=== PATIENT | female | born 1960 | race Caucasian/White ===

== ENCOUNTER 2024-03-26 04:30 | Emergency (ER) | payer BC, OTHER ==
--- OUTSIDE RECORDS SUMMARY | 2024-03-26 04:34 | XMS REPORT | Continuity of Care Document ---
Author Name Unknown Address [address] [place] [address] thconnect Address [address] [place] [address] Care Team Providers Care Mortgage Loan Processing Clerk Name Role Phone [email or web address] Attending Clinician Unavaila ble [email or web address] Admitting Clinician Unavaila ble Encounters Start Date/Time End Date/Time Encounter Type Admission Type Attending Clinicians Care Facility Care Department Encounter ID Source 2023-03-14 00:00:00 2023-03-14 00:00:00 Outpatient [email or web address] [email or web address] [facility] [id number] [facility]
[2024-03-26] MEDS ORDERED: DIAZEPAM 10 MG/2 ML INJ SYRINGE ONE (05:28)
[2024-03-26 06:03] LABS: Absolute Basophils 0.1 K/uL (0-0.5); Absolute Eosinophils 0.1 K/uL (0-0.5); Absolute Lymphocytes (CBC) 2.1 K/uL (0.7-4.9); Absolute Monocytes 0.4 K/uL (0.1-1.3); Absolute Neutrophil 2.5 K/uL (1.8-8.0); Basophils % 1.2 % (0-1.3); Eosinophils % 1.2 % (0-4.4); Hematocrit 36.6 % (36.0-45.0); Hemoglobin 12.4 g/dL (12.0-15.0); Lymphocytes % 41.2 % (15.3-44.8); MCH 31.8 pg (27.0-35.0); MCHC 33.8 g/dL (32.0-36.0); MCV 94.1 fL (80-100); MPV 8.9 fL (7.6-11.3); Monocytes % 7.3 % (3.3-12.3); Neutrophils % 49.1 % (41.7-73.7); Platelets 279 thou/uL (152-406); RBC Red Blood Cell Count 3.89 M/uL (3.86-4.86); Red Cell Distribution Width 13.1 % (12.1-15.2)
[2024-03-26 06:49] LABS: Anion Gap 8.4 mEq/L (5.0-15.0); Potassium 3.4 mEq/L (3.5-5.1); Troponin High Sensitivity 6.7 pg/mL (<58.9)
--- NOTE | 2024-03-26 06:54 | RAD REPORT ---
EXAM DESCRIPTION: Chest Single View CLINICAL HISTORY: CHEST PAIN COMPARISON: None TECHNIQUE: Single AP view of the chest. FINDINGS: Lung volumes adequate. Cardiac silhouette is normal in size. No pneumothorax. No large pleural effusion. No focal consolidation. No acute bony finding. IMPRESSION: No evidence of acute cardiopulmonary disease. Electronically signed by: Dominic Alejandre MD 03/26/2024 06:40 AM LABORATORY SAMPLE CARRIER Z9 Due to temporary technical issues with the PACS/Solairedirect reporting system, reports are being viri d by the in-house radiologist without review as a courtesy to ensure prompt reporting the interpreting radiologist is fully responsible for the content of the report. Transcribed Date/Time: 03/26/2024 6:54 AM
--- NOTE | 2024-03-26 06:58 | ER ---
Nurse's Notes [facility] Name: Melony Washington Age: 63 yrs Sex: Female : 1960 Arrival Date: 03/26/2024 Time: 04:30 Bed 6 Private MD: Diagnosis: Chest pain, unspecified;Anxiety disorder, unspecified Presentation: 03/26 04:47 Chief complaint: Patient states: history of panic attacks after loss of son. since his lg3 I've had troubles controlling my BP and anxiety. BP readings high all day triggering my anxiety. left arm heaviness and achiness. Coronavirus screen: Client denies travel out of the [place] in the last 14 days. At this time, the client does not indicate any symptoms associated with coronavirus-19. Ebola Screen: No symptoms or risks identified at this time. Initial Sepsis Screen: Does the patient meet any 2 criteria? No. Patient's initial sepsis screen is negative. Does the patient have a suspected source of infection? No. Patient's initial sepsis screen is negative. Risk Assessment: Do you want to hurt yourself or someone else? Patient reports no desire to harm self or others. Onset of symptoms was February 23, 2024. 04:47 Method Of Arrival: Ambulatory lg3 04:47 Acuity: SAUL 3 lg3 Triage Assessment: 04:59 General: Appears in no apparent distress. Behavior is cooperative, anxious. Pain: lg3 Complains of pain in left arm. EENT: No deficits noted. No signs and/or symptoms were reported regarding the EENT system. Neuro: No deficits noted. Dickens Agitation-Sedation Scale (RASS): 0 - Alert and Calm Level of Consciousness is awake, alert, obeys commands, Oriented to person, place, time, situation. Cardiovascular: Capillary refill < 3 seconds Clubbing of nail beds is absent JVD is absent Patient's skin is warm and dry. Respiratory: No deficits noted. Airway is patent Respiratory effort is even, unlabored, Respiratory pattern is regular, symmetrical. GI: No deficits noted. No signs and/or symptoms were reported involving the gastrointestinal system. : No deficits noted. No signs and/or symptoms were reported regarding the genitourinary system. Derm: No deficits noted. No signs and/or symptoms reported regarding the dermatologic system. Skin is intact, is healthy with good turgor, Skin is dry, Skin is normal, Skin temperature is warm. Musculoskeletal: Reports pain in left arm. Historical: - Allergies: 04:59 STATINS HMG COA REDUCTASE INHIBITORS; lg3 - Home Meds: 04:59 buspirone 10 mg Oral tablet 1 tab 3 times per day [Active]; olmesartan 40 mg oral lg3 tablet 1 tab daily [Active]; - PMHx: 04:59 Anxiety; Hypertensive disorder; Fibromyalgia; Osteoarthritis; lung cancer; lg3 - PSHx: 04:59 right partial lobectomy; lg3 - Immunization history:: Adult Immunizations up to date. - Infectious Disease History:: Denies. - Social history:: Smoking status: Patient denies any tobacco usage or history of. Patient/guardian denies using alcohol, street drugs. Screenin:25 [facility] ED Fall Risk Assessment (Adult) History of falling in the last 3 months, jj7 including since admission No falls in past 3 months (0 pts) Confusion or Disorientation No (0 pts) Intoxicated or Sedated No (0 pts) Impaired Gait No (0 pts) Mobility Assist Device Used No (0 pt) Altered Elimination No (0 pt) Score/Fall Risk Level 0 - 2 = Low Risk Oriented to surroundings, Maintained a safe environment, Educated pt \T\ family on fall prevention, incl call for assistance when getting out of bed, Assessed \T\ reinforced patient's understanding of fall precautions. Abuse screen: Denies threats or abuse. Nutritional screening: No deficits noted. Tuberculosis screening: No symptoms or risk factors identified. Assessment: 05:25 General: Appears in no apparent distress. comfortable, Behavior is calm, cooperative, jj7 appropriate for age, anxious. Pain: Denies pain. Neuro: Reports numbness in left arm. Cardiovascular: Denies chest pain. Vital Signs: 04:47 BP 185 / 106; Pulse 86; Resp 17 S; Temp 98.1(O); Pulse Ox 96% on R/A; Weight 68.04 kg lg3 (R); Height 5 ft. 3 in. (R); 05:55 BP 152 / 88; Pulse 80; ec2 06:25 BP 150 / 85; Pulse 79; Resp 20; Pulse Ox 100% ; jj7 06:38 BP 147 / 87; Pulse 83; ec2 07:12 BP 144 / 80; Pulse 72; Resp 16; Pulse Ox 99% ; ko1 04:47 Body Mass Index 26.57 (68.04 kg, 160.02 cm) lg3 ED Course: 04:44 Patient arrived in ED. gm2 04:45 Ok Rhodes MD is Attending Physician. ec2 04:59 Triage completed. lg3 04:59 Arm band placed on right wrist. lg3 05:07 Erica Sargent, RN is Primary Nurse. jj7 05:25 Patient has correct armband on for positive identification. Placed in gown. Bed in low jj7 position. Call light in reach. Adult w/ patient. Provided Education on: USE OF CALL BENITES. Client placed on continuous cardiac and pulse oximetry monitoring. NIBP monitoring applied. threat monitoring analyst on. Pulse ox on. Warm blanket given. 05:31 XRAY Chest (1 view) In Process Unspecified. EDMS 05:35 Missed attempt(s): 20 gauge in left antecubital area. Bleeding controlled, band aid jj7 applied, catheter tip intact. 05:40 Inserted saline lock: 20 gauge in left hand, using aseptic technique. Blood collected. jj7 Flushed with 10 mL NS. 05:51 Basic Metabolic Panel Sent. jj7 05:51 CBC with Diff Sent. jj7 05:51 Troponin HS Sent. jj7 06:24 Basic Metabolic Panel Sent. jj7 06:25 Troponin HS Sent. jj7 07:12 No provider procedures requiring assistance completed. IV discontinued, intact, ko1 bleeding controlled, No redness/swelling at site. Pressure dressing applied. Administered Medications: 05:40 Drug: Diazepam IVP 5 mg IVP once Route: IVP; Site: left hand; jj7 06:24 Follow up: Response: Anxiety unchanged jj7 Medication: 05:25 VIS not applicable for this client. jj7 Outcome: 06:57 Discharge ordered by . ec2 07:12 Discharged to home ambulatory, with family, ko1 07:12 Condition: stable 07:12 Discharge instructions given to patient, family, Instructed on discharge instructions, follow up and referral plans. medication usage, Demonstrated understanding of instructions, follow-up care, medications, Prescriptions given X 1, 07:13 Patient left the ED. ko1 Signatures: Dispatcher [employer] EDAmy Chanel RN RN lg3 Danae Ontiveros, RN RN ko1 Erica Sargent, RN RN jj7 Ok Rhodes MD MD ec2 Clare London 2
--- NOTE | 2024-03-26 06:58 | EDPHYS ---
Physician Documentation [facility] Name: Melony Washington Age: 63 yrs Sex: Female : 1960 Arrival Date: 03/26/2024 Time: 04:30 Bed 6 Private MD: ED Physician Ok Rhodes HPI: 03/26 05:06 This 63 yrs old Female presents to ER via Ambulatory with complaints of High ec2 Blood Pressure, Arm Pain. 05:06 Patient with history of anxiety and hypertension arrives today due to concern for left ec2 arm pain. States that she has been having some issues with stress and anxiety due to the loss of multiple loved ones. Reports that she grew concerned because she has high blood pressure and started having some left arm pain.. Historical: - Allergies: 04:59 STATINS HMG COA REDUCTASE INHIBITORS; lg3 - Home Meds: 04:59 buspirone 10 mg Oral tablet 1 tab 3 times per day [Active]; olmesartan 40 mg oral lg3 tablet 1 tab daily [Active]; - PMHx: 04:59 Anxiety; Hypertensive disorder; Fibromyalgia; Osteoarthritis; lung cancer; lg3 - PSHx: 04:59 right partial lobectomy; lg3 - Immunization history:: Adult Immunizations up to date. - Infectious Disease History:: Denies. - Social history:: Smoking status: Patient denies any tobacco usage or history of. Patient/guardian denies using alcohol, street drugs. ROS: 05:06 Constitutional: as per hpi ec2 Exam: 05:06 Constitutional: GEN: NAD Head: atraumatic Eyes: EOMI Ears: External ears are ec2 normal. CV: regular rate LUNGS: no respiratory distress ABD: non-distended SKIN: no evidence of rashes MSK: no evidence of traumaPsych: Tearful individual was otherwise cooperative in no acute distress Vital Signs: 04:47 BP 185 / 106; Pulse 86; Resp 17 S; Temp 98.1(O); Pulse Ox 96% on R/A; Weight 68.04 kg lg3 (R); Height 5 ft. 3 in. (R); 05:55 BP 152 / 88; Pulse 80; ec2 06:25 BP 150 / 85; Pulse 79; Resp 20; Pulse Ox 100% ; jj7 06:38 BP 147 / 87; Pulse 83; ec2 07:12 BP 144 / 80; Pulse 72; Resp 16; Pulse Ox 99% ; ko1 04:47 Body Mass Index 26.57 (68.04 kg, 160.02 cm) lg3 MDM: 04:45 Medical Screening Exam initiated ec2 05:07 Data reviewed: vital signs, nurses notes. ec2 06:02 ED course: EKG independently reviewed and interpreted by me, shows normal sinus rhythm, ec2 rate 76, no acute ST segment elevations, intervals are nonactionable.. 06:36 ED course: Chest x-ray independently reviewed and interpreted by me, shows no acute ec2 intrathoracic process.. 06:57 ED course: On reassessment patient is well-appearing no acute distress. Will discharge ec2 home, suspect anxiety. Return precautions given.. 03/26 04:45 Order name: Basic Metabolic Panel; Complete Time: 06:50 ec2 03/26 04:45 Order name: CBC with Diff; Complete Time: 06:36 ec2 03/26 04:45 Order name: Troponin HS; Complete Time: 06:50 ec2 03/26 04:45 Order name: XRAY Chest (1 view) ec2 03/26 04:45 Order name: Cardiac monitoring; Complete Time: 05:25 ec2 03/26 04:45 Order name: EKG - Nurse/Tech; Complete Time: 06:07 ec2 03/26 04:45 Order name: IV Saline Lock; Complete Time: 05:25 ec2 03/26 04:45 Order name: Labs collected and sent; Complete Time: 05:51 ec2 03/26 04:45 Order name: O2 Per Protocol; Complete Time: 05:25 ec2 03/26 04:45 Order name: O2 Sat Monitoring; Complete Time: 05:25 ec2 03/26 06:07 Order name: Misc. Order: RECOLLECT GREEN TOP; Complete Time: 06:25 rv1 Administered Medications: 05:40 Drug: Diazepam IVP 5 mg IVP once Route: IVP; Site: left hand; jj7 06:24 Follow up: Response: Anxiety unchanged jj7 Disposition Summary: 03/26/24 06:57 Discharge Ordered Notes: Location: Home ec2 Condition: Stable ec2 Diagnosis - Chest pain, unspecified ec2 - Anxiety disorder, unspecified ec2 Followup: ec2 - With: Private Physician - When: - Reason: Re-evaluation by your physician Discharge Instructions: - Discharge Summary Sheet ec2 - Panic Attack, [id number] ec2 Forms: - Medication Reconciliation Form ec2 - Antibiotic Education ec2 - Prescription Opioid Use ec2 - Patient Portal Instructions ec2 - Leadership Thank You Letter ec2 Prescriptions: - Hydroxyzine HCl 50 mg Oral Tablet - take 1 tablet ORAL route every 8 hours As needed; 20 tablet; Refills: 0, ec2 Product Selection Permitted Signatures: Dispatcher [employer] EDAmy Chanel, RN RN lg3 Erica Sargent RN RN jj7 Barbara Lin rv1 Ok Rhodes MD MD ec2 Corrections: (The following items were deleted from the chart) 04:46 04:46 BASIC METABOLIC PANEL+C.LAB.BRZ ordered. EDMS EDMS 04:46 04:46 CBC+H.LAB.BRZ ordered. EDMS EDMS 04:46 04:46 Troponin High Sensitivity+C.LAB.BRZ ordered. EDMS EDMS 04:46 04:46 Chest Single View+RAD.RAD.BRZ ordered. EDMS EDMS
[2024-03-26 07:23] VITALS: TEMP 98.1
[2024-03-26 07:40] VITALS: BP 144/80; O2SAT 99
--- NOTE | 2024-03-26 12:39 | EKG ---
Test Date: 2024-03-26 Test Time: 05:59:36 Junior Web Developer: MEASUREMENT RESULTS: Intervals: Rate: 76 NH: 138 QRSD: 86 QT: 376 QTc: 423 Comins: P: 4 NH: 138 QRS: 28 T: 48 INTERPRETIVE STATEMENTS: Normal sinus rhythm Normal ECG No previous ECG available for comparison Electronically Signed On 03-26-24 12:38:17 SHANKER OUT by Anton Harvey
== END 2024-03-26 07:13 | disposition home or self-care (01) ==
LOC: ER 04:30
DX: R07.89 Other chest pain (principal); F41.9 Anxiety disorder, unspecified; I10 Essential (primary) hypertension
CPT/HCPCS: 93005; 85025; 80048; 36415; 84484; 71045; J3360; 96374; 99285

== ENCOUNTER 2024-04-21 19:15 | Emergency (ER) | payer BC ==
[2024-04-21] MEDS ORDERED: FENTANYL CITR 100 MCG/2 ML ONE (20:00)
[2024-04-21] MEDS ORDERED: HYDROCODONE/APAP 10/325 TAB ONE (20:22)
[2024-04-21] MEDS ORDERED: ONDANSETRON 4 MG (ODT) TAB ONE (20:22)
--- NOTE | 2024-04-21 21:34 | RAD REPORT ---
Exam:Shoulder Right 2+ Views History: Right shoulder pain Findings: Suboptimal evaluation of the right shoulder secondary to difficulty with patient positioning. No fracture seen. Evaluation for dislocation is limited. There probably is not a dislocation. If clinical suspicion per sists for one than CT could be obtained
--- NOTE | 2024-04-21 21:47 | ER ---
Nurse's Notes [facility] Name: Melony Washington Age: 63 yrs Sex: Female : 1960 Arrival Date: 04/21/2024 Time: 19:15 Bed 6 Private MD: Diagnosis: Other sprain of right shoulder joint Presentation: 04/21 19:20 Chief complaint: Patient states: states she was at the [employer] walking up to it, al5 caught the curb accidentally and fell. states she had her arms extended out and felt a pop in her R arm. c/o pain to R shoulder and R leg, pain more in R shoulder. 19:20 Acuity: SAUL 3 al5 19:20 Care prior to arrival: None. Mechanism of Injury: Fall from standing position. Trauma al5 event details: Injury occurred in the [facility], Injury occurred: in a public building. Injury occurred: April 21, 2024. 19:20 Method Of Arrival: Ambulatory al5 19:20 Coronavirus screen: At this time, the client does not indicate any symptoms associated al5 with coronavirus-19. Ebola Screen: No symptoms or risks identified at this time. Initial Sepsis Screen: Does the patient meet any 2 criteria? No. Patient's initial sepsis screen is negative. Does the patient have a suspected source of infection? No. Patient's initial sepsis screen is negative. Risk Assessment: Do you want to hurt yourself or someone else? Patient reports no desire to harm self or others. Onset of symptoms was April 21, 2024. Triage Assessment: 19:20 General: see trauma assessment. al5 Trauma Activation: Physician: ED Physician; Name: ; Notified At: ; Arrived At: Physician: General Surgeon; Name: ; Notified At: ; Arrived At: Physician: Radiology; Name: ; Notified At: ; Arrived At: Physician: Respiratory; Name: ; Notified At: ; Arrived At: Physician: Lab; Name: ; Notified At: ; Arrived At: 19:20 n/a al5 Historical: - Allergies: 19:20 STATINS HMG COA REDUCTASE INHIBITORS; al5 - Home Meds: 19:20 buspirone 10 mg Oral tablet 1 tab 3 times per day [Active]; olmesartan 40 mg Oral al5 tablet 1 tab daily [Active]; - PMHx: 19:20 Anxiety; Fibromyalgia; Hypertensive disorder; Lung Cancer; osteoarthritis; al5 - PSHx: 19:20 right partial lobectomy; al5 - Immunization history: Last tetanus immunization: - up to date. - Infectious Disease History:: Denies. - Social history:: Smoking status: Patient denies any tobacco usage or history of. Screenin:20 Abuse screen: Denies threats or abuse. Denies injuries from another. Nutritional al5 screening: No deficits noted. Tuberculosis screening: No symptoms or risk factors identified. 19:20 [facility] ED Fall Risk Assessment (Adult) History of falling in the last 3 months, al5 including since admission Yes- single mechanical fall (1 pt) Confusion or Disorientation No (0 pts) Intoxicated or Sedated No (0 pts) Impaired Gait No (0 pts) Mobility Assist Device Used No (0 pt) Altered Elimination No (0 pt) Score/Fall Risk Level 3 or more points = High Risk Oriented to surroundings, Maintained a safe environment, Hourly rounding (assess needs \T\ fall precautionary measures) done, Utilized family, sitter, or virtual efficiency expert as indicated. Primary Survey: 19:20 NO uncontrolled hemorrhage observed. A: The client is awake and alert. The airway is al5 patent. The client is alert. Airway: patent. Breathing/Chest: Spontaneous respiratory effort, equal unlabored respirations, breath sounds clear bilaterally, regular pattern, symmetrical chest rise and fall. Respiratory effort: spontaneous, unlabored, Respiratory pattern: regular. Circulation: No external hemorrhage present. Regular and strong central pulse, skin warm/dry/normal color. Skin color: pink, Skin temperature: warm, dry. Disability Pupils are equal, round, reactive to light and accommodation. Client is alert. Exposure/Environment: Obvious injury(ies) are noted at this time: R leg and and shoulder. 22:15 Reassessment Alertness and Airway: Awake and alert. The airway is patent. Airway Patent al5 Oxygen No O2 Breathing: Spontaneous respiratory effort, equal unlabored respirations, breath sounds clear bilaterally, regular pattern with symmetrical chest rise and fall. Respiratory effort Spontaneous Unlabored Respiratory pattern Regular Circulation: No external hemorrhage noted. Regular and strong central pulse, skin warm/dry/normal color. Color [place] Temperature Warm Dry Disability: Pupils Pupils are equal, round, reactive to light and accomodation. Alert. Secondary Survey: 19:20 HEENT: No deficits noted. Gastrointestinal: No deficits noted. : No deficits noted. al5 Musculoskeletal: Reports pain in right leg and right arm. Assessment: 19:20 General: Appears in no apparent distress. uncomfortable, Behavior is cooperative. Pain: al5 Complains of pain in right arm and right leg Pain currently is 10 out of 10 on a pain scale. Neuro: Level of Consciousness is awake, alert, obeys commands, Oriented to person, place, time, situation. EENT: No signs and/or symptoms were reported regarding the EENT system. Cardiovascular: Capillary refill < 3 seconds Patient's skin is warm and dry. Respiratory: Airway is patent Respiratory effort is even, unlabored, Respiratory pattern is regular, symmetrical. GI: No signs and/or symptoms were reported involving the gastrointestinal system. : No signs and/or symptoms were reported regarding the genitourinary system. Derm: Skin is intact, is healthy with good turgor, Skin is pink, warm \T\ dry. normal. Musculoskeletal: No signs and/or symptoms reported regarding the musculoskeletal system. 20:30 Reassessment: Patient appears in no apparent distress at this time. No changes from al5 previously documented assessment. Patient and/or family updated on plan of care and expected duration. Pain level reassessed. Patient is alert, oriented x 3, equal unlabored respirations, skin warm/dry/pink. 21:19 Reassessment: Patient appears in no apparent distress at this time. No changes from al5 previously documented assessment. Patient and/or family updated on plan of care and expected duration. Pain level reassessed. Patient is alert, oriented x 3, equal unlabored respirations, skin warm/dry/pink. pain is about an 8/10 but is tolerable per the patient. Vital Signs: 19:20 BP 177 / 112; Pulse 79; Resp 19; Temp 98.4; Pulse Ox 95% ; Weight 61.23 kg; Height 5 al5 ft. 3 in. ; Pain 10/10; 19:45 BP 170 / 114; Pulse 79; Resp 18; Pulse Ox 100% on R/A; al5 20:00 BP 159 / 91; Pulse 86; Resp 18; Pulse Ox 100% ; al5 20:30 BP 152 / 107; Pulse 81; Resp 17; Pulse Ox 99% on R/A; al5 21:00 BP 112 / 93; Pulse 91; Resp 17; Pulse Ox 99% on R/A; al5 22:16 BP 131 / 92; Pulse 87; Resp 18; Pulse Ox 100% on R/A; al5 19:20 Body Mass Index 23.91 (61.23 kg, 160.02 cm) al5 19:20 Pain Scale: Adult al5 Hector Coma Score: 19:20 Eye Response: spontaneous(4). Motor Response: obeys commands(6). Verbal Response: al5 oriented(5). Total: 15. Trauma Score (Adult): 19:20 Eye Response: spontaneous(1); Verbal Response: oriented(1); Motor Response: obeys al5 commands(2); Systolic BP: > 89 mm Hg(4); Respiratory Rate: 10 to 29 per min(4); Hector Score: 15; Trauma Score: 12 ED Course: 19:17 Patient arrived in ED. gm2 19:20 Patient has correct armband on for positive identification. Bed in low position. Call al5 light in reach. Side rails up X2. 19:20 Arm band placed on right wrist. Patient placed in the treatment room, on a stretcher. al5 19:20 Provided Education on: plan of care, medications. al5 19:20 Patient maintains SpO2 saturation greater than 95% on room air. al5 19:20 Thermoregulation: warm blanket given to patient. al5 19:22 Vicki Lindo PA-C is PHCP. sb4 19:22 Nina nKowles MD is Attending Physician. sb4 19:39 Yolie Bergeron RN is Primary Nurse. al5 19:48 Triage completed. al5 20:34 Shoulder Right (2 View) XRAY In Process Unspecified. EDMS 21:46 Josue Noel MD is Referral Physician. sb4 22:14 No provider procedures requiring assistance completed. Patient did not have IV access al5 during this emergency room visit. Clavicle strap applied on. Administered Medications: 20:06 Drug: fentaNYL (PF) IM 50 mcg IM once Route: IM; Site: right deltoid; al5 20:34 Follow up: Response: No adverse reaction; Pain is unchanged, physician notified al5 20:34 Drug: [place] PO 10 mg-325 mg 1 tabs PO once Route: PO; al5 21:15 Follow up: Response: No adverse reaction; Pain is decreased al5 20:34 Not Given (Patient Refused): Ondansetron Oral Disintegrating Tablet 4 mg PO once al5 Medication: 19:20 VIS not applicable for this client. al5 Intake: 19:20 n/a al5 Outcome: 21:47 Discharge ordered by . sb4 22:15 Discharged to home ambulatory, with significant other, al5 22:15 Condition: good 22:15 Discharge instructions given to patient, Instructed on discharge instructions, follow up and referral plans. medication usage, Demonstrated understanding of instructions, follow-up care, medications, Prescriptions given X 2, 22:15 Patient's length of stay was not longer than 2 hours. 22:17 Patient left the ED. al5 Signatures: Dispatcher [employer] EDMS Vicki Lindo, PA-C PA-Nav bull4 Clare London 2 Yolie Bergeron RN RN al5 Corrections: (The following items were deleted from the chart) 21:19 21:19 Reassessment: Patient appears in no apparent distress at this time. No changes al5 from previously documented assessment. Patient and/or family updated on plan of care and expected duration. Pain level reassessed. Patient is alert, oriented x 3, equal unlabored respirations, skin warm/dry/pink. al5
--- NOTE | 2024-04-21 21:47 | EDPHYS ---
Physician Documentation [facility] Name: Melony Washington Age: 63 yrs Sex: Female : 1960 Arrival Date: 04/21/2024 Time: 19:15 Bed 6 Private MD: ED Physician Nina Knowles HPI: 04/21 20:48 This 63 yrs old Female presents to ER via Ambulatory with complaints of Fall Injury, sb4 Arm Injury. 20:48 tripped over a curb and fell on an outstretched right hand, heard shoulder pop, sb4 immediately had pain in the area. states the pain begins in the shoulder and radiates down to her hand. reports history of arthritis in the shoulder but no other issues with it. Historical: - Allergies: 19:20 STATINS HMG COA REDUCTASE INHIBITORS; al5 - Home Meds: 19:20 buspirone 10 mg Oral tablet 1 tab 3 times per day [Active]; olmesartan 40 mg Oral al5 tablet 1 tab daily [Active]; - PMHx: 19:20 Anxiety; Fibromyalgia; Hypertensive disorder; Lung Cancer; osteoarthritis; al5 - PSHx: 19:20 right partial lobectomy; al5 - Immunization history: Last tetanus immunization: - up to date. - Infectious Disease History:: Denies. - Social history:: Smoking status: Patient denies any tobacco usage or history of. ROS: 20:48 Constitutional: Negative for fever, chills, and weight loss, sb4 20:48 MS/extremity: Positive for injury or acute deformity, decreased range of motion, pain, of the right arm, 20:48 All other systems are negative, Exam: 20:48 Constitutional: The patient appears alert, awake, in obvious pain, uncomfortable, sb4 20:48 Musculoskeletal/extremity: Circulation is intact in all extremities. Pulses: are normal with no appreciated deficits, Sensation intact. Joints: the right shoulder displays limited range of motion, pain at rest, painful range of motion, no deformity or crepitus, 20:50 Head/Face: Normocephalic, atraumatic. Eyes: Extra-ocular motions intact. Periorbital sb4 areas with no swelling, redness, or edema. ENT: Mucous membranes moist. Skin: Warm, dry with normal turgor. Normal color with no rashes, no lesions, and no evidence of cellulitis. Vital Signs: 19:20 BP 177 / 112; Pulse 79; Resp 19; Temp 98.4; Pulse Ox 95% ; Weight 61.23 kg; Height 5 al5 ft. 3 in. ; Pain 10/10; 19:45 BP 170 / 114; Pulse 79; Resp 18; Pulse Ox 100% on R/A; al5 20:00 BP 159 / 91; Pulse 86; Resp 18; Pulse Ox 100% ; al5 20:30 BP 152 / 107; Pulse 81; Resp 17; Pulse Ox 99% on R/A; al5 21:00 BP 112 / 93; Pulse 91; Resp 17; Pulse Ox 99% on R/A; al5 22:16 BP 131 / 92; Pulse 87; Resp 18; Pulse Ox 100% on R/A; al5 19:20 Body Mass Index 23.91 (61.23 kg, 160.02 cm) al5 19:20 Pain Scale: Adult al5 Hector Coma Score: 19:20 Eye Response: spontaneous(4). Motor Response: obeys commands(6). Verbal Response: al5 oriented(5). Total: 15. Trauma Score (Adult): 19:20 Eye Response: spontaneous(1); Verbal Response: oriented(1); Motor Response: obeys al5 commands(2); Systolic BP: > 89 mm Hg(4); Respiratory Rate: 10 to 29 per min(4); Hector Score: 15; Trauma Score: 12 MDM: 19:23 Medical Screening Exam initiated sb4 20:50 Independent interpretation of the following test(s) in the Emergency Department X-Ray: sb4 My interpretation is my interpretation of the right shoulder xray images are no acute fracture or dislocation. 23:59 Data reviewed: vital signs, nurses notes, radiologic studies, and as a result, I will sb4 discharge patient. Counseling: I had a detailed discussion with the patient and/or guardian regarding the historical points, exam findings, and any diagnostic results supporting the discharge/admit diagnosis, radiology results, the need for outpatient follow up, a orthopedic surgeon, to return to the emergency department if symptoms worsen or persist or if there are any questions or concerns that arise at home. 04/21 19:31 Order name: Shoulder Right (2 View) XRAY; Complete Time: 21:35 sb4 Administered Medications: 20:06 Drug: fentaNYL (PF) IM 50 mcg IM once Route: IM; Site: right deltoid; al5 20:34 Follow up: Response: No adverse reaction; Pain is unchanged, physician notified al5 20:34 Drug: [place] PO 10 mg-325 mg 1 tabs PO once Route: PO; al5 21:15 Follow up: Response: No adverse reaction; Pain is decreased al5 20:34 Not Given (Patient Refused): Ondansetron Oral Disintegrating Tablet 4 mg PO once al5 Disposition Summary: 04/21/24 21:47 Discharge Ordered Notes: Location: Home sb4 Problem: new sb4 Symptoms: have improved sb4 Condition: Stable sb4 Diagnosis - Other sprain of right shoulder joint sb4 Followup: sb4 - With: Josue Noel MD - When: As needed - Reason: Further diagnostic work-up, Recheck today's complaints, Re-evaluation by your physician Discharge Instructions: - Discharge Summary Sheet sb4 - How to Use a Shoulder Immobilizer sb4 - Shoulder Sprain sb4 Forms: - Patient Portal Instructions sb4 - Leadership Thank You Letter sb4 - Work release form al5 Prescriptions: - Cyclobenzaprine 10 mg Oral Tablet - take 1 tablet ORAL route every 8 hours As needed; 30 tablet; Refills: 0, sb4 Product Selection Permitted - Diclofenac Sodium 75 mg Oral Tablet Sustained Release - take 1 tablet ORAL route 2 times per day; 30 tablet; Refills: 0, Product sb4 Selection Permitted Signatures: Dispatcher [employer] Vicki Lee PA-C PA-C sb4 Yolie Bergeron RN RN al5
[2024-04-22 01:34] VITALS: TEMP 98.4
[2024-04-22 01:40] VITALS: BP 131/92; O2SAT 100
== END 2024-04-21 22:17 | disposition home or self-care (01) ==
LOC: ER 19:15
DX: S43.491A Other sprain of right shoulder joint, initial encounter (principal); W18.09XA Striking against other object with subsequent fall, initial encounter
CPT/HCPCS: 73030; 96372; 99284; J3010; Q0162

== ENCOUNTER 2024-10-01 15:08 | Emergency (ER) | payer BC, SELFPAY ==
--- OUTSIDE RECORDS SUMMARY | 2024-10-01 15:21 | XMS REPORT | Continuity of Care Document ---
Author Name Unknown Address [address] [place] [id number] [place] [address] [place] [address] [address] [place] [address] Care Team Providers Care Ui Designer Name Role Phone [email or web address] Attending Clinician Unavaila ble [email or web address] Admitting Clinician Unavaila ble Encounters Start Date/Time End Date/Time Encounter Type Admission Type Attending Clinicians Care Facility Care Department Encounter ID Source 2023-03-14 00:00:00 2023-03-14 00:00:00 Outpatient [email or web address] [facility] [id number] [facility]
[2024-10-01] MEDS ORDERED: FENTANYL CITR 100 MCG/2 ML ONE (16:02)
--- NOTE | 2024-10-01 16:54 | RAD REPORT ---
EXAMINATION: Spine Lumbar Wo Con CLINICAL INDICATION: Female, 64 years old. Pain;Radiculopathy TECHNIQUE: Axial CT images were obtained through the lumbar spine in soft tissue and bone windows wit hout intravenous contrast. Coronal and Sagittal reformatted images were created from the data set. One or more of the following dose reduction techniques were used: Automated exposure control, adjustm ent of the mA and/ or kV according to patient size, and/or iterative reconstruction. Unless otherwise specified, incidental findings do not require dedicated imaging follow-up. [id number]. COMPARISON: No prior exam. FINDINGS: For purposes of this dictation, it is assumed that there are 5 non rib-bearing lumbar type vertebrae, and the most caudal fully segmented lumbar vertebra is labeled L5. ALIGNMENT: The lumbar spine demonstrates normal alignment without scoliosis or spondylolisthesis. BONES: Acute anterior inferior endplate fracture at L3. No significant vertebral body height loss. DISCS: Severe disc height loss at L5-S1. Mild disc height loss at L4-5. LEVELS: No significant spinal canal or neural foraminal stenosis. No visualized abnormality within th e spinal canal. SOFT TISSUE: No soft tissue abnormalities. IMPRESSION: Acute fracture involving the anterior inferior L3 vertebral body without significant vertebral body h eight loss.
--- NOTE | 2024-10-01 17:00 | ER ---
Nurse's Notes [facility] Name: Melony Washington Age: 64 yrs Sex: Female : 1960 Arrival Date: 10/01/2024 Time: 15:08 Bed 8 Private MD: Diagnosis: Other fracture of third lumbar vertebra, initial encounter for closed fracture Presentation: 10/01 15:26 Chief complaint: Patient states: Pt works at [employer], was out side lifting something jb4 that was about 30 pounds and felt a pop in her back. Employees had to drag her inside and sit her in a chair. Reports pain is in right lower back, worsens with movement, eases with rest. Was given given 2.5mg of Droperidol. Coronavirus screen: At this time, the client does not indicate any symptoms associated with coronavirus-19. Ebola Screen: No symptoms or risks identified at this time. Initial Sepsis Screen: Does the patient meet any 2 criteria? No. Patient's initial sepsis screen is negative. Does the patient have a suspected source of infection? No. Patient's initial sepsis screen is negative. Risk Assessment: Do you want to hurt yourself or someone else? Patient reports no desire to harm self or others. Onset of symptoms was October 01, 2024. Transition of care: patient was not received from another setting of care. 15:26 Method Of Arrival: EMS: [facility] jb4 15:26 Acuity: SAUL 4 jb4 Historical: - Allergies: 15:30 STATINS HMG COA REDUCTASE INHIBITORS; jb4 - PMHx: 15:30 Anxiety; Fibromyalgia; Hypertensive disorder; Lung Cancer; osteoarthritis; jb4 - PSHx: 15:30 right partial lobectomy; jb4 - Immunization history:: Adult Immunizations up to date. - Infectious Disease History:: Denies. - Social history:: Smoking status: Patient denies any tobacco usage or history of. Screenin:25 [facility] ED Fall Risk Assessment (Adult) History of falling in the last 3 months, jb4 including since admission No falls in past 3 months (0 pts) Confusion or Disorientation No (0 pts) Intoxicated or Sedated No (0 pts) Impaired Gait No (0 pts) Mobility Assist Device Used No (0 pt) Altered Elimination No (0 pt) Score/Fall Risk Level 0 - 2 = Low Risk Oriented to surroundings, Maintained a safe environment. Abuse screen: Denies threats or abuse. Nutritional screening: No deficits noted. Tuberculosis screening: No symptoms or risk factors identified. Assessment: 15:30 General: Appears in no apparent distress. uncomfortable, Behavior is calm, cooperative, jb4 appropriate for age. Pain: Complains of pain in right low back Pain does not radiate. Pain currently is 8 out of 10 on a pain scale. Neuro: Level of Consciousness is awake, alert, obeys commands, Oriented to person, place, time, situation. Cardiovascular: Patient's skin is warm and dry. Respiratory: Airway is patent Respiratory effort is even, unlabored, Respiratory pattern is regular, symmetrical. Derm: Skin is intact, Skin is pink, warm \T\ dry. 16:27 Reassessment: Patient appears in no apparent distress at this time. Patient and/or jb4 family updated on plan of care and expected duration. Pain level reassessed. Patient is alert, oriented x 3, equal unlabored respirations, skin warm/dry/pink. 17:25 Reassessment: Patient appears in no apparent distress at this time. Patient and/or jb4 family updated on plan of care and expected duration. Pain level reassessed. Patient is alert, oriented x 3, equal unlabored respirations, skin warm/dry/pink. Vital Signs: 15:34 BP 161 / 96; Pulse 82; Resp 16; Temp 98; Pulse Ox 99% ; Weight 68.04 kg; Height 5 ft. 3 jb4 in. ; Pain 8/10; 17:25 BP 162 / 97; Pulse 86; Resp 16; Pulse Ox 97% on R/A; jb4 15:34 Body Mass Index 26.57 (68.04 kg, 160.02 cm) jb4 15:34 Pain Scale: Adult jb4 ED Course: 15:18 Patient arrived in ED. eb 15:18 Sor[facility] Pop FNP [facility] 7 15:18 Nina Knowles MD is Attending Physician. 7 15:30 Triage completed. jb4 15:30 Arm band placed on right wrist. jb4 15:30 Patient has correct armband on for positive identification. Bed in low position. Call jb4 light in reach. Side rails up X 1. Provided Education on: plan of care. 16:27 Wiley Rivera, RN is Primary Nurse. jb4 16:38 CT Lumbar Spine Wo Con In Process Unspecified. EDMS 16:59 Josue Noel MD is Referral Physician. jh7 17:27 No provider procedures requiring assistance completed. IV discontinued, intact, jb4 bleeding controlled, No redness/swelling at site. Pressure dressing applied. Administered Medications: 16:15 Drug: fentaNYL (PF) IVP 25 mcg IVP once Route: IVP; Site: left forearm; jb4 17:27 Follow up: Response: No adverse reaction; Marked relief of symptoms; Pain is decreased jb4 Medication: 17:25 VIS not applicable for this client. jb4 Outcome: 16:59 Discharge ordered by . jh7 17:27 Discharged to home via wheelchair, with family, jb4 17:27 Condition: stable 17:27 Discharge instructions given to patient, Instructed on discharge instructions, follow up and referral plans. no drinking with medication, no driving heavy equipment, medication usage, Demonstrated understanding of instructions, follow-up care, medications, Prescriptions given X 2, 17:28 Patient left the ED. jb4 Signatures: Dispatcher [employer] EDCA Wiley Rivera, RN RN jb4 Kimberli Lopez Jennifer, GRIT REMOVAL OPERATOR GRIT REMOVAL OPERATOR 7 Corrections: (The following items were deleted from the chart) 16:08 15:34 Pulse 82bpm; Resp 16bpm; Pulse Ox 99%; Temp 98F; 68.04 kg; Height 5 ft. 3 in.; jb4 BMI: 26.5; Pain 8/10, Adult; jb4
--- NOTE | 2024-10-01 17:00 | EDPHYS ---
Physician Documentation [facility] Name: Melony Washington Age: 64 yrs Sex: Female : 1960 Arrival Date: 10/01/2024 Time: 15:08 Bed 8 Private MD: ED Physician Nina Knowles HPI: 10/01 15:30 This 64 yrs old Female presents to ER via EMS with complaints of LOWER BACK PAIN. jh7 15:30 64-year-old female with a past medical history of hypertension, fibromyalgia, and jh7 osteoarthritis presents to the ER for a lower back injury. She reports that she was at [employer], her place of work, and that she was lifting a 60 pound box with the assistance of her coworker. She reports that she suddenly felt a pop followed by severe back pain. She denies any loss of bowel/bladder, numbness/tingling in her lower extremities, or weakness. Reports severe pain with any movement of the spine.. Historical: - Allergies: 15:30 STATINS HMG COA REDUCTASE INHIBITORS; jb4 - PMHx: 15:30 Anxiety; Fibromyalgia; Hypertensive disorder; Lung Cancer; osteoarthritis; jb4 - PSHx: 15:30 right partial lobectomy; jb4 - Immunization history:: Adult Immunizations up to date. - Infectious Disease History:: Denies. - Social history:: Smoking status: Patient denies any tobacco usage or history of. ROS: 15:30 Constitutional: Per HPI jh7 Exam: 15:30 Back: pain, that is moderate, ROM is painful, normal spinal alignment noted, CVA jh7 tenderness, is absent, vertebral tenderness, is not appreciated, muscle spasm, is appreciated in the lumbar area and sacrum, Straight leg raises: pain bilaterally, 15:30 Head/Face: Normocephalic, atraumatic. Neck: Trachea midline, no thyromegaly or masses jh7 palpated, and no cervical lymphadenopathy. Supple, full range of motion without nuchal rigidity, or vertebral point tenderness. No Meningismus. Cardiovascular: Regular rate and rhythm with a normal S1 and S2. No gallops, murmurs, or rubs. Normal PMI, no JVD. No pulse deficits. Respiratory: Lungs have equal breath sounds bilaterally, clear to auscultation and percussion. No rales, rhonchi or wheezes noted. No increased work of breathing, no retractions or nasal flaring. Abdomen/GI: Soft, non-tender, with normal bowel sounds. No distension or tympany. No guarding or rebound. No evidence of tenderness throughout. Skin: Warm, dry with normal turgor. Normal color with no rashes, no lesions, and no evidence of cellulitis. MS/ Extremity: Pulses equal, no cyanosis. Neurovascular intact. Full, normal range of motion. Neuro: Awake and alert, GCS 15, oriented to person, place, time, and situation. Motor strength 5/5 in all extremities. Sensory grossly intact. Normal gait. 15:30 Constitutional: The patient appears alert, awake, in obvious pain, Vital Signs: 15:34 BP 161 / 96; Pulse 82; Resp 16; Temp 98; Pulse Ox 99% ; Weight 68.04 kg; Height 5 ft. 3 jb4 in. ; Pain 8/10; 17:25 BP 162 / 97; Pulse 86; Resp 16; Pulse Ox 97% on R/A; jb4 15:34 Body Mass Index 26.57 (68.04 kg, 160.02 cm) jb4 15:34 Pain Scale: Adult jb4 MDM: 15:18 Medical Screening Exam initiated jh7 17:00 Differential diagnosis: arthritis, Fracture Ligament Injury Osteoarthritis ruptured [facility] disc, sprain, vertebral fracture. Data reviewed: vital signs, nurses notes, radiologic studies, CT scan. I considered the following discharge prescriptions or medication management in the emergency department Medications were administered in the Emergency Department. See MAR. Independent interpretation of the following test(s) in the Emergency Department CT Scan: My interpretation is L3 fracture. Historians other than the Patient: EMS: EMS. Care significantly affected by the following chronic conditions: Hypertension. Counseling: I had a detailed discussion with the patient and/or guardian regarding the historical points, exam findings, and any diagnostic results supporting the discharge/admit diagnosis, the need for outpatient follow up, a orthopedic surgeon, Spine. Response to treatment: the patient's symptoms have mildly improved after treatment. ED course: Inform the patient that she had an L3 vertebral body fracture. Advised her to follow-up with orthospine and to avoid heavy lifting until cleared by Ortho. No neurological deficits were appreciated on exam and the patient remained hemodynamically stable throughout her ER stay.. 10/01 15:34 Order name: CT Lumbar Spine Wo Con; Complete Time: 16:56 [facility] Administered Medications: 16:15 Drug: fentaNYL (PF) IVP 25 mcg IVP once Route: IVP; Site: left forearm; jb4 17:27 Follow up: Response: No adverse reaction; Marked relief of symptoms; Pain is decreased jb4 Disposition Summary: 10/01/24 16:59 Discharge Ordered Notes: Location: Home [facility] Problem: new [facility] Symptoms: are unchanged [facility] Condition: Stable [facility] Diagnosis - Other fracture of third lumbar vertebra, initial encounter for closed fracture [facility] Followup: [facility] - With: Josue Noel MD - When: 2 - 3 days - Reason: Recheck today's complaints Discharge Instructions: - Discharge Summary Sheet [facility] - Lumbar Spine Fracture [facility] Forms: - Work release form jb4 - Medication Reconciliation Form [facility] - Prescription Opioid Use [facility] - Patient Portal Instructions [facility] - Leadership Thank You Letter [facility] Prescriptions: - acetaminophen-codeine 300-15 mg Oral tablet - take 1 tablet ORAL route every 4 to 6 hours As needed as needed for pain; 30 jh7 tablet; Refills: 0, Product Selection Permitted - Naprosyn 500 mg Oral Tablet - take 1 tablet ORAL route 2 times per day take with food; 30 tablet; Refills: 0, jh7 Product Selection Permitted Signatures: Dispatcher [employer] Wiley Iverson, RN RN jb4 Soraya Pop FNP [employer] [facility]
[2024-10-01 17:39] VITALS: TEMP 98
[2024-10-01 17:40] VITALS: BP 162/97; O2SAT 97
== END 2024-10-01 17:28 | disposition home or self-care (01) ==
LOC: ER 15:08
DX: S32.038A Other fracture of third lumbar vertebra, initial encounter for closed fracture (principal); X50.0XXA Overexertion from strenuous movement or load, initial encounter; Y99.0 Civilian activity done for income or pay
CPT/HCPCS: 72131; 96374; 99284; J3010